=== PATIENT | male | born 1980 | race Caucasian/White ===

== ENCOUNTER → 2016-09-29 | Outpatient (CLI) | payer OTHER ==
[~2016-09-29] MED LIST: AMLO2.5T PO; LOSA1TAB PO; VNTHFA/IN INH
[2016-09-29 09:34] LABS: BASO % 0.5 %; BASO ABS # 0.03 K/uL (0-0.2); COMPLETE YES; EOS % 1.7 %; HEMATOCRIT 42.9 % (42-52); IG% 0.2 %; LYMPH % 25.2 %; LYMPH ABS # 1.52 K/uL (1.2-3.4); MEAN CORPUSCULAR HEMOGLOBIN 29.3 pg (25-34); MEAN CORPUSCULAR HGB CONC 34.5 g/dl (32-36); MEAN PLATELET VOLUME 10.1 fL (7.4-10.4); MONO % 8.5 %; NEUT % 63.9 %; PLATELET COUNT 285 K/uL (130-400); RED BLOOD COUNT 5.05 M/uL (4.7-6.1); WHITE BLOOD COUNT 6.02 K/uL (4.8-10.8)
[2016-09-29 10:15] LABS: URINE APPEARANCE CLEAR (CLEAR); URINE BILIRUBIN NEG (NEG); URINE COLOR YELLOW; URINE EPITHELIAL CELL AUTO 0-5 /lpf (0-5); URINE NITRITE NEG (NEG); URINE SPECIFIC GRAVITY 1.023 (1.000-1.030); UROBILINOGEN NEG (NEG); ZZUR CULT IF INDIC CLEAN CATCH NO
[2016-09-29 10:17] LABS: ALT/SGPT 69 U/L (12-78); AST/SGOT 25 U/L (15-37); BLOOD UREA NITROGEN 15 mg/dl (7-18); BUN/CREATININE RATIO 16.6 (10-20); CALCIUM 8.7 mg/dl (8.5-10.1); CARBON DIOXIDE 27 mmol/L (21-32); CHLORIDE 109 mmol/L (98-107); CREATININE 0.89 mg/dl (0.60-1.40); GLUCOSE 89 mg/dl (70-99); POTASSIUM 4.3 mmol/L (3.5-5.1); SODIUM 142 mmol/L (136-145)
[2016-09-29 10:27] LABS: ALB/GLOB RATIO 1.3 (0.9-2); ALKALINE PHOSPHATASE 48 U/L (45-117); CHOLESTEROL 153 mg/dl (0-200); HDL CHOLESTEROL 38 mg/dl; LDL CHOLESTEROL CALCULATED 83 mg/dl; TRIGLYCERIDES 161 mg/dl (0-150); VERY LOW DENSITY LIPOPROT CALC 32 mg/dl
[2016-09-29 10:28] LABS: MANUAL MICROSCOPIC REQUIRED? NO; REVIEW REQ? NO
[2016-10-03 17:34] LABS: IGA SERUM 157 mg/dL (81-463); TIS TRANS IGA 1 U/mL (<4)
== END | disposition home or self-care (01) ==
LOC: C.LAB1850 08:37
PROVIDERS: ATTEND Internal Medicine
DX: Z13.6 Encounter for screening for cardiovascular disorders (principal); R19.5 Other fecal abnormalities; I10 Essential (primary) hypertension

== ENCOUNTER → 2016-10-05 | Day surgery (SDC) | payer OTHER ==
[2016-09-11 08:23] VITALS: Ht 180.3 cm; Wt 107.7 kg
[~2016-10-05] VITALS: Ht 180.3 cm; Wt 107.7 kg
[2016-10-05 12:17] VITALS: BP 133/80; PULSE 59; TEMP 36.6; O2SAT 97
--- NOTE | 2016-10-05 14:06 | Procedure Note ---
Breath Hydrogen Test Interpretation Assessment: Normal Lactose breath test Plan: Followup with Gastroenterology for further evaluation and recommendations.
== END | disposition home or self-care (01) ==
LOC: C.GI 08:12
PROVIDERS: ATTEND Internal Medicine
DX: R19.5 Other fecal abnormalities (principal)

== ENCOUNTER → 2016-10-19 | Day surgery (SDC) | payer OTHER ==
[2016-09-11 08:31] VITALS: Ht 180.3 cm; Wt 107.7 kg
[~2016-10-19] VITALS: Ht 180.3 cm; Wt 107.7 kg
[~2016-10-19] MED LIST changes: +LIDOCAINE HCL 2% 2 ML VIAL (20MG/ML) ONE; +PROPOFOL IV EMULSION 10 MG/ML 20 ML VIAL IV ONE; +SODIUM CHLORIDE 0.9% 500ML 500 ML IV ONE
--- NOTE | 2016-10-19 14:07 | Endo History and Physical ---
History & Physical Date of Service: Oct 19, 2016. Chief Complaint: Loose stool Referring Physician: Dr Flowers History of Present Illness 36 yo CM who presents for colonoscopy secondary to chronic diarrhea. Past Surgical History Hx Cardiac Surgery: No Hx Internal Defibrillator: No Hx Pacemaker: No Hx Abdominal Surgery: No Hx of Implantable Prosthesis: No Hx Post-Op Nausea and Vomiting: No Hx Cancer Surgery: No Hx Thoracic Surgery: No Hx Orthopedic: No Hx Urinary Tract Surgery: No Family History None Social History Smoking Status: Never Smoker Hx Substance Use: No Hx Alcohol Use: Yes (RARELY) Allergies Coded Allergies: No Known Allergies (Verified , 10/05/16) Current Medications Reported Home Medications Medications Dose Route/Sig Max Daily Dose Days Date Category Norvasc (Amlodipine Besylate) 2.5 Mg Tab 2.5 Mg PO DAILY 10/19/16 Reported Cozaar (Losartan Potassium) 25 Mg Tab 25 Mg PO QPM 09/11/16 Reported Vital Signs Weight (Kilograms): 107.73 Height (Feet): 5 Height (Inches): 11 Date Time Temp Pulse Resp B/P (MAP) Pulse Ox O2 Delivery O2 Flow Rate FiO2 10/19/16 13:53 36.7 64 18 149/92 (111) 96 Room Air Physical Exam General Appearance: WD/WN, no apparent distress Respiratory/Chest: Auscultation: breath sounds normal Cardiovascular: Heart Auscultation: RRR Abdomen: Bowel Sounds: normal Inspection & Palpation: soft, non-distended, no tenderness, guarding & rebound Assessment and Plan Assessment: 36 yo CM who presents for colonoscopy secondary to chronic diarrhea. Plan: Proceed with colonoscopy.
--- NOTE | 2016-10-19 15:16 | Discharge Instructions ---
Endoscopy Patient Instructions Date / Procedure(s) Performed Oct 19, 2016. Colonoscopy Allergy Information Coded Allergies: No Known Allergies (Verified , 10/05/16) Discharge Date / Findings Oct 19, 2016. Random colon biopsies Stool aspirate collected Internal hemorrhoids Medication Instructions OK to resume all medications today as prescribed Reported Home Medications Medications Dose Route/Sig Max Daily Dose Days Date Category Norvasc (Amlodipine Besylate) 2.5 Mg Tab 2.5 Mg PO DAILY 10/19/16 Reported Cozaar (Losartan Potassium) 25 Mg Tab 25 Mg PO QPM 09/11/16 Reported Provider Instructions Activity Restrictions - No exercising or heavy lifting for 24 hours. - Do not drink alcohol the day of the procedure. - Do not drive a car or operate machinery until the day after the procedure. - Do not make any important decisions or sign important papers in 24 hours after the procedure. Following Day: - Return to full activity which may include returning to work/school. Diet Start your diet with liquids and light foods (jello, soup, juice, toast). Then eat your usual diet if not nauseated. Treatment For Common After Affects For mild abdominal pain, bloating, or excessive gas: - Rest - Eat lightly - Lie on right side Follow-Up Information Follow-up with Dr Flowers as scheduled Anesthesia Information What You Should Know You have had a procedure that required some medicine to reduce anxiety and discomfort. This treatment is called moderate sedation. After receiving the treatment, you may be sleepy, but you will be able to breathe on your own. The effects of the treatment may last for several hours. Follow these instructions along with Activity/Diet recommendations noted above: * Do NOT do anything where dizziness or clumsiness would be dangerous. * Rest quietly at home today, then you can be up and about tomorrow. * Have a responsible person stay with you the rest of today. * You may have had an I.V. today. If so, you may take the dressing off later today. Recommendations Call your doctor if: * Trouble breathing * Continuous vomiting for more than 24 hours * Temperature above 101 degrees * Severe abdominal pain or bloating * Pain not relieved by pain medicine ordered * There is increased drainage or redness from any incision * A large amount of rectal bleeding greater than 2-3 tablespoons. (If you had a polyp/s removed or have hemorrhoids, a small amount of blood - from the rectum is to be expected.) * You have any unanswered questions or concerns. IN THE EVENT OF A SERIOUS EMERGENCY, GO TO THE NEAREST EMERGENCY ROOM Your discharge instructions were prepared by provider Ahsan Saleem. Patient Instructions Signature Page Med Felipe Patient (or Guardian) Signature/Date: I have read and understand the instructions given to me by my caregivers. Caregiver/RN/Doctor Signature/Date: The above-named patient and/or guardian has received patient instructions on this date. + Original Patient Signature Page (only) stays with chart. Please make copy for patient.
--- NOTE | 2016-10-19 15:23 | GI REPORT ---
Procedure Date: 10/19/2016 2:31 PM Procedure: Colonoscopy Indications: Chronic diarrhea Medicines: Monitored Anesthesia Care Complications: No immediate complications. Estimated Blood Loss: Estimated blood loss: none. Procedure: Pre-Anesthesia Assessment: - Prior to the procedure, a History and Physical was performed, and patient medications and allergies were reviewed. The patient's tolerance of previous anesthesia was also reviewed. The risks and benefits of the procedure and the sedation options and risks were discussed with the patient. All questions were answered, and informed consent was obtained. Prior Anticoagulants: The patient has taken no previous anticoagulant or antiplatelet agents. ASA Grade Assessment: II - A patient with mild systemic disease. After reviewing the risks and benefits, the patient was deemed in satisfactory condition to undergo the procedure. After I obtained informed consent, the scope was passed under direct vision. Throughout the procedure, the patient's blood pressure, pulse, and oxygen saturations were monitored continuously. The scope was introduced through the anus and advanced to the terminal ileum. The colonoscopy was performed without difficulty. The patient tolerated the procedure well. The quality of the bowel preparation was good. The terminal ileum, ileocecal valve, appendiceal orifice, and rectum were photographed. Findings: Non-bleeding internal hemorrhoids were found during retroflexion. The hemorrhoids were small. Several random biopsies were obtained with cold forceps for histology in the entire colon. Fluid aspiration for cytology was performed in the entire colon. Impression: - Non-bleeding internal hemorrhoids. - Several random biopsies were obtained in the entire colon. - Fluid aspiration was performed. Recommendation: - Resume previous diet. - Continue present medications. - Repeat colonoscopy for surveillance based on pathology results. - Return to primary care physician as previously scheduled. Ahsan Saleem DO 10/19/2016 3:22:58 PM This report has been signed electronically. Note Initiated On: 10/19/2016 2:31 PM I attest to the content of the Intraoperative Record and orders documented therein, exceptions below
--- NOTE | 2016-10-19 15:30 | Anesthesiology Progress Note ---
Anesthesia Post Op Note Date & Time Oct 19, 2016 at 15:30 Vital Signs Pain Intensity: 0 Vital Signs Past 12 Hours Date Time Temp Pulse Resp B/P (MAP) Pulse Ox O2 Delivery O2 Flow Rate FiO2 10/19/16 15:17 67 18 128/64 (85) 96 Room Air 10/19/16 13:53 36.7 64 18 149/92 (111) 96 Room Air Notes Mental Status: alert / awake / arousable, participated in evaluation Pt Amnestic to Procedure: Yes Nausea / Vomiting: adequately controlled Pain: adequately controlled Airway Patency, RR, SpO2: stable & adequate BP & HR: stable & adequate Hydration State: stable & adequate Anesthetic Complications: no major complications apparent
[2016-10-19 15:47] VITALS: BP 131/87; PULSE 73; O2SAT 97
== END | disposition home or self-care (01) ==
LOC: C.GI 13:35
PROVIDERS: ATTEND Internal Medicine
DX: R19.7 Diarrhea, unspecified (principal); K64.8 Other hemorrhoids

== ENCOUNTER → 2016-12-21 | Day surgery (SDC) | payer OTHER ==
[2016-12-14 11:41] VITALS: BMI 32.0
[~2016-12-21] VITALS: Ht 180.3 cm; Wt 104.5 kg
[~2016-12-21] MED LIST changes: +ATROPINE SULFATE 0.1 MG/ML 5ML SYR IV PRN; +BUPIVACAINE/EPINEPHRINE 0.5% MPF 1:200,000 30 ML VIAL ONE; +CEFAZOLIN 2000 MG/60 ML D5W IV SCH; +DEXAMETHASONE SOD INJ 4 MG/ML VIAL ONE; +FENTANYL CITRATE INJ 50 MCG/1 ML 2 ML VIAL IV PRN; +FENTANYL CITRATE INJ 50 MCG/1 ML 2 ML VIAL ONE; +GLYCOPYRROLATE INJ 0.2 MG/ML VIAL ONE; +HYDR-5688 PO; +HYDROCODONE/ACETAMOPHEN 5/325MG TAB PO PRN; +KETOROLAC TROMETHAMINE 30 MG/ML VIAL IV. PRN; +KETOROLAC TROMETHAMINE 30 MG/ML VIAL ONE; +LABETALOL HCL IV 5 MG/ML 20ML IV PRN; +LACTATED RINGER'S 1000ML 1,000 ML IV SCH; -LOSA1TAB PO; +MIDAZOLAM HCL 1 MG/ML 2ML VIAL ONE; +MORPHINE SULFATE PF 2MG/2ML SYR ONE; +NEOSTIGMINE METHYLSULFATE 5 MG/5 ML SYR ONE; +ONDANSETRON INJ 2 MG/ML 2 ML VIAL IV PRN; +ONDANSETRON INJ 2 MG/ML 2 ML VIAL ONE; +ROCURONIUM BROMIDE 10 MG/ML 5 ML VIAL IV ONE; +SODIUM CHLORIDE 0.9% 1000ML 1,000 ML IV SCH; -SODIUM CHLORIDE 0.9% 500ML 500 ML IV ONE
[2016-12-21 07:54] VITALS: BP 173/88; PULSE 75; TEMP 36; O2SAT 98; Ht 180.3 cm; Wt 104.5 kg
--- NOTE | 2016-12-21 08:52 | History & Physical Bridge Note ---
H&P Re-Evaluation Bridge Note: I have examined the patient, reviewed the History & Physical and in the interval since the performance of the History & Physical I have noted the following changes of clinical significance: No changes noted
--- NOTE | 2016-12-21 10:37 | Discharge Instructions ---
Discharge Instructions Date of Service Dec 21, 2016. Admission Reason for Admission: Symptomatic Cholelithiasis Discharge Discharge Diagnosis / Problem: Symptomatic Cholelithiasis Discharge Goals Goal(s): Decrease discomfort, Improve function Activity Recommendations Activity Limitations: as noted below Lifting Limitations: no more than 10 pounds Exercise/Sports Limitations: until after follow-up appointment May Resume Sexual Activity: after follow-up appointment Shower/Bathe: tomorrow Driving or Machine Use: resume 1 day after discharge . Instructions / Follow-Up Instructions / Follow-Up Please follow-up with Dr. Latham in 1-2 weeks. Please call the office at to make a follow-up appointment if you do not have one already. Please call the office with any questions or concerns. Current Hospital Diet Patient's current hospital diet: Discharge Diet Recommended Diet: Regular Diet Procedures Procedures Performed: Laparoscopic Cholecystectomy Pending Studies Studies pending at discharge: yes List of pending studies: Pathology report. Laboratory Results Lipid Panel Test 09/29/16 08:39 Range/Units Triglycerides Level 161 H 0-150 mg/dl Cholesterol Level 153 0-200 mg/dl HDL Cholesterol 38 mg/dl Cholesterol/HDL Ratio 4.0 LDL Cholesterol, Calculated 83 mg/dl Medical Emergencies . Who to Call and When: Medical Emergencies: If at any time you feel your situation is an emergency, please call 911 immediately. . Non-Emergent Contact Non-Emergency issues call your: Primary Care Provider, Surgeon Call Non-Emergent contact if: temperature is above 101.5, your pain is not controlled, wound has increased drainage, wound has increased redness . "Provider Documentation" section prepared by Raven Ward. . VTE Core Measure Inpt VTE Proph given/why not?: SCD's [place] Drug Monitoring Program Search Results: patient reviewed within database, no issues identified
--- NOTE | 2016-12-21 10:50 | [facility] Operative Report ---
Operative Report Operative Date Dec 21, 2016. Pre-Operative Diagnosis Cholelithiasis Post-Operative Diagnosis Cholelithiasis Procedure(s) Performed Laparoscopic Cholecystectomy Surgeon Dr. Jay Latham Lens Cementer Surgeon(s) Raven Ward PA-C Estimated Blood Loss 10 mL Findings normal anatomy other than gallstones Specimens Permanent specimens A: Gallbladder and contents Description of Procedure After informed consent was obtained patient was take to the operating room and placed in supine position. After successful intubation the abdomen was shaved and sterilely prepped and draped usual fashion. A supraumbilical incision was made with an 11 blade scalpel and carried down through the soft tissue using electrocautery. The anterior rectus fascia was opened using electrocautery and 2 #0 Vicryl stay sutures were placed. Peritoneum was entered using blunt figure penetration and a finger sweep was performed. A 12 mm Osorio trocar was placed and the abdomen was insufflated 18 mmHg. The laparoscope was inserted and the abdomen was examined 360. No gross abnormalities were identified. A subxiphoid 5 mm port was placed ( later converted to an 11 mm trochar), 2 right upper quadrant 5 mm trochars were placed under direct vision. The patient was placed in reversed about Trendelenburg position slightly airplaned to the left. The gallbladder was grasped and elevated superiorly and laterally. [place] dissector was used to take down adhesions around the neck of the gallbladder. We skeletonized the cystic duct clipped twice proximally once distally and transected it. Due to the size of the duct I converted to an 11 mm trochar and used a large clip warehouse consultant. In similar fashion the cystic artery was identified skeletonized clipped and divided. The gallbladder was removed from the gallbladder fossa intact using electrocautery. It was placed into an Endo Catch bag. Any small bleeding points on the fossa were controlled using electrocautery. There was adequate hemostasis and no evidence of any bile leak at the end of the procedure. A final irrigation was performed. The gallbladder and trochars were all removed. The fascia of the camera port was closed using 0 Vicryl in [id number] fashion. The wounds were all irrigated and closed using 4-0 Monocryl. Marcaine was injected around him for postoperative analgesia and skin glue used as a dressing. Patient was awaken x- rayed and transferred recovery in stable condition I attest to the content of the Intraoperative Record and any orders documented therein. Any exceptions are noted below.
--- NOTE | 2016-12-21 11:08 | Anesthesiology Progress Note ---
Anesthesia Post Op Note Date & Time Dec 21, 2016 at 11:08 Vital Signs Pain Intensity: 0 Vital Signs Past 12 Hours Date Time Temp Pulse Resp B/P (MAP) Pulse Ox O2 Delivery O2 Flow Rate FiO2 12/21/16 11:05 57 16 158/94 100 Nasal Cannula 4 12/21/16 10:55 61 16 156/96 100 Nasal Cannula 4 12/21/16 10:45 58 18 148/97 100 Nasal Cannula 4 12/21/16 10:35 36.3 68 18 157/90 100 Nasal Cannula 4 12/21/16 07:54 36.0 75 16 173/88 (116) 98 Room Air Notes Mental Status: alert / awake / arousable, participated in evaluation Pt Amnestic to Procedure: Yes Nausea / Vomiting: adequately controlled Pain: adequately controlled Airway Patency, RR, SpO2: stable & adequate BP & HR: stable & adequate Hydration State: stable & adequate Anesthetic Complications: no major complications apparent
[2016-12-21 11:20] VITALS: BP 162/89; PULSE 63; TEMP 37; O2SAT 98
[2016-12-21 11:50] VITALS: BP 156/98; PULSE 66; O2SAT 98
[2016-12-21 12:20] VITALS: BP 157/94; PULSE 63; TEMP 36.5; O2SAT 98
== END | disposition home or self-care (01) ==
LOC: C.ACU 07:27
PROVIDERS: ATTEND Surgery
DX: K80.10 Calculus of gallbladder with chronic cholecystitis without obstruction (principal); I10 Essential (primary) hypertension; Z79.899 Other long term (current) drug therapy

== ENCOUNTER → 2017-01-30 | Outpatient (CLI) | payer OTHER ==
[~2017-01-30] MED LIST changes: -ATROPINE SULFATE 0.1 MG/ML 5ML SYR IV PRN; -BUPIVACAINE/EPINEPHRINE 0.5% MPF 1:200,000 30 ML VIAL ONE; -CEFAZOLIN 2000 MG/60 ML D5W IV SCH; -DEXAMETHASONE SOD INJ 4 MG/ML VIAL ONE; -FENTANYL CITRATE INJ 50 MCG/1 ML 2 ML VIAL IV PRN; -FENTANYL CITRATE INJ 50 MCG/1 ML 2 ML VIAL ONE; -GLYCOPYRROLATE INJ 0.2 MG/ML VIAL ONE; -HYDR-5688 PO; -HYDROCODONE/ACETAMOPHEN 5/325MG TAB PO PRN; -KETOROLAC TROMETHAMINE 30 MG/ML VIAL IV. PRN; -KETOROLAC TROMETHAMINE 30 MG/ML VIAL ONE; -LABETALOL HCL IV 5 MG/ML 20ML IV PRN; -LACTATED RINGER'S 1000ML 1,000 ML IV SCH; -LIDOCAINE HCL 2% 2 ML VIAL (20MG/ML) ONE; -MIDAZOLAM HCL 1 MG/ML 2ML VIAL ONE; -MORPHINE SULFATE PF 2MG/2ML SYR ONE; -NEOSTIGMINE METHYLSULFATE 5 MG/5 ML SYR ONE; -ONDANSETRON INJ 2 MG/ML 2 ML VIAL IV PRN; -ONDANSETRON INJ 2 MG/ML 2 ML VIAL ONE; -PROPOFOL IV EMULSION 10 MG/ML 20 ML VIAL IV ONE; -ROCURONIUM BROMIDE 10 MG/ML 5 ML VIAL IV ONE; -SODIUM CHLORIDE 0.9% 1000ML 1,000 ML IV SCH
== END | disposition home or self-care (01) ==
LOC: C.LAB1850 11:16
PROVIDERS: ATTEND Nurse Practitioner
DX: R17 Unspecified jaundice (principal)

== ENCOUNTER → 2017-04-06 | Outpatient (CLI) | payer OTHER ==
[2017-04-06 14:10] LABS: TOTAL PROTEIN 6.9 gm/dl (6.4-8.2)
== END | disposition home or self-care (01) ==
LOC: C.LAB1850 12:07
PROVIDERS: ATTEND Nurse Practitioner
DX: R17 Unspecified jaundice (principal)

== ENCOUNTER → 2017-05-07 | Outpatient (CLI) | payer OTHER ==
[2017-05-07 12:48] LABS: BLOOD UREA NITROGEN 15 mg/dl (7-18); CARBON DIOXIDE 27 mmol/L (21-32); CREATININE 1.05 mg/dl (0.60-1.40); GLUCOSE 98 mg/dl (70-99); POTASSIUM 4.6 mmol/L (3.5-5.1); SODIUM 137 mmol/L (136-145)
== END | disposition home or self-care (01) ==
LOC: C.LABBFT 07:53
PROVIDERS: ATTEND Nurse Practitioner
DX: I10 Essential (primary) hypertension (principal)

== ENCOUNTER → 2017-09-26 | Outpatient (CLI) | payer OTHER ==
[2017-09-26 09:32] LABS: BASO % 0.2 %; BASO ABS # 0.01 K/uL (0-0.2); EOS % 1.8 %; EOS ABS # 0.11 K/uL (0-0.5); HEMATOCRIT 43.9 % (42-52); HEMOGLOBIN 15.1 g/dL (14.0-18.0); IG# 0.01 K/uL (0.00-0.02); LYMPH % 32.1 %; LYMPH ABS # 1.94 K/uL (1.2-3.4); MEAN CELL VOLUME 83.6 fL (80-100); MEAN CORPUSCULAR HEMOGLOBIN 28.8 pg (25-34); MEAN CORPUSCULAR HGB CONC 34.4 g/dl (32-36); MEAN PLATELET VOLUME 11.3 fL (7.4-10.4); MONO % 7.8 %; MONO ABS # 0.47 K/uL (0.11-0.59); NEUT % 57.9 %; NEUT ABS # 3.51 K/uL (1.4-6.5); PLATELET COUNT 251 K/uL (130-400); RED CELL DISTRIBUTION WIDTH SD 38.8 fL (36.4-46.3); WHITE BLOOD COUNT 6.05 K/uL (4.8-10.8)
[2017-09-26 09:46] LABS: ALBUMIN 4.1 gm/dl (3.4-5.0); ALKALINE PHOSPHATASE 44 U/L (45-117); ALT/SGPT 65 U/L (12-78); AST/SGOT 26 U/L (15-37); BLOOD UREA NITROGEN 11 mg/dl (7-18); CALCIUM 8.8 mg/dl (8.5-10.1); CARBON DIOXIDE 30 mmol/L (21-32); CHOLESTEROL 141 mg/dl (0-200); CREATININE 0.95 mg/dl (0.60-1.40); GLUCOSE 94 mg/dl (70-99); LDL CHOLESTEROL CALCULATED 79 mg/dl; POTASSIUM 4.3 mmol/L (3.5-5.1); SODIUM 141 mmol/L (136-145); TOTAL PROTEIN 6.8 gm/dl (6.4-8.2)
== END | disposition home or self-care (01) ==
LOC: C.LAB1850 07:57
PROVIDERS: ATTEND Internal Medicine
DX: I10 Essential (primary) hypertension (principal)